=== PATIENT | female | born 1995 | race Two or more races ===

== ENCOUNTER 2017-09-21 21:59 | Emergency (ER) | payer MEDICAID ==
[~2017-09-21] VITALS: Ht 152.4 cm; Wt 88.5 kg
[2017-09-21 22:05] VITALS: BP 136/96
--- NOTE | 2017-09-21 22:16 | Emergency Room Report ---
History of Present Illness General Chief Complaint: Abdominal Pain Source: Patient Present Illness HPI 22-year-old female presenting with dysuria and suprapubic pain for 3 days. Denies any fever chills. No nausea vomiting diarrhea. Complains of dysuria and urinary urgency. No hematuria. Denies any abnormal vaginal discharge Allergies: Coded Allergies: No Known Allergies (Unverified , 09/21/17) Patient History Past Medical History: see triage record Past Surgical History: none Pertinent Family History: none Last Menstrual Period: sep 04 : 1 Para: 1 Reviewed Nursing Documentation: PMH: Agreed, PSxH: Agreed Nursing Documentation-PMH Past Medical History: No Stated History Review of Systems All Other Systems: negative except mentioned in HPI Physical Exam Vital Signs Date Time Temp Pulse Resp B/P (MAP) Pulse Ox O2 Delivery O2 Flow Rate FiO2 09/21/17 22:02 98.1 98 16 136/96 99 Room Air Sp02 EP Interpretation: reviewed, normal General Appearance: normal inspection, well appearing, no apparent distress, alert, GCS 15, non-toxic Head: normocephalic, atraumatic Eyes: bilateral eye normal inspection, bilateral eye PERRL, bilateral eye EOMI ENT: normal ENT inspection, normal pharynx, normal voice, moist mucus membranes Neck: normal inspection, full range of motion, supple Respiratory: normal inspection, lungs clear, normal breath sounds, no respiratory distress, no retraction, no wheezing, speaking full sentences, chest symmetrical Cardiovascular #1: normal inspection, regular rate, rhythm, no edema, normal capillary refill Cardiovascular #2: 2+ radial (R), 2+ radial (L) Gastrointestinal: soft, non-distended, no guarding, other - Suprapubic tenderness, no guarding no rigidity, no right lower quadrant or left lower quadrant focal tenderness Genitourinary: other - +cervix erythema, +cmt, no adnexal tendenress, white DC from cervix Musculoskeletal: normal inspection, back normal, normal range of motion, non- tender Neurologic: normal inspection, alert, oriented x3, responsive, motor strength/ tone normal, sensory intact, normal gait, speech normal Psychiatric: normal inspection, judgement/insight normal, memory normal Skin: normal inspection, normal color, no rash, warm/dry, well hydrated, normal turgor Medical Decision Making Diagnostic Impression: Primary Impression: Concern about STD in female without diagnosis ER Course 22-year-old female yo F with dysuria DDX: UTI / cystitis vs. pyelo vs STD Plan: UA, UCX ER course: Pt remains stable/nontoxic appearing in ED. UA neg pt states she is monogamous w one partner, doesnt use condoms, but has gotten chlamydia before exam significant for CMT and erythema Tx empirically for STD Disposition: Patient will be discharged home . Strict return precautions to discussed with patient such as high fever, chills, abdominal pain, nausea or vomiting. Patient verbalized understanding. Patient instructed to follow up with primary care doctor within 3 days. Patient agrees with plan. Please note that this Emergency Department Report was dictated using [employer] machine operator technology software, occasionally this can lead to erroneous entry secondary to interpretation by the dictation equipment Laboratory Tests Test 09/21/17 22:05 Urine Color Pale yellow Urine Appearance Clear Urine pH 7 (4.5-8.0) Urine Specific [place] 1.005 (1.005-1.035) Urine Protein Negative (NEGATIVE) Urine Glucose (UA) Negative (NEGATIVE) Urine Ketones Negative (NEGATIVE) Urine Occult Blood Negative (NEGATIVE) Urine Nitrite Negative (NEGATIVE) Urine Bilirubin Negative (NEGATIVE) Urine Urobilinogen Normal MG/DL (0.0-1.0) Urine Leukocyte Esterase 1+ (NEGATIVE) H Urine RBC 0-2 /HPF (0 - 2) Urine WBC 0-2 /HPF (0 - 2) Urine Squamous Epithelial Cells Few /LPF (NONE/OCC) Urine Bacteria Few /HPF (NONE) Urine HCG, Qualitative Negative Last Vital Signs Date Time Temp Pulse Resp B/P (MAP) Pulse Ox O2 Delivery O2 Flow Rate FiO2 09/21/17 22:02 98.1 98 16 136/96 99 Room Air Disposition: HOME, SELF-CARE Condition: Stable Diego Acosta M.D. Sep 21, 2017 22:16
[2017-09-21 22:27] LABS: APPEARANCE,URINE CLEAR; BILIRUBIN, URINE NEGATIVE (NEGATIVE); COLOR,URINE PALE YELLOW; GLUCOSE, URINE (UA) NEGATIVE (NEGATIVE); KETONES,URINE NEGATIVE (NEGATIVE); LEUKOCYTE ESTERASE ,URINE 1+ (NEGATIVE); NITRITE,URINE NEGATIVE (NEGATIVE); PH,URINE 7 (4.5-8.0); PROTEIN,URINE NEGATIVE (NEGATIVE); UROBILINOGEN,URINE NORMAL MG/DL (0.0-1.0)
[2017-09-21] MEDS ORDERED: Azithromycin 250mg tab ORAL ONE (23:15)
[2017-09-21 23:40] VITALS: BP 146/85
== END 2017-09-21 23:40 | disposition home or self-care (01) ==
LOC: EMR 23:40
DX: R30.0 Dysuria (principal); R10.30 Lower abdominal pain, unspecified
CPT/HCPCS: 81001; 81025; 96372; 99283; J0696; Q0144

== ENCOUNTER 2020-07-05 11:24 | Emergency (ER) | payer MEDICAID ==
[~2020-07-05] VITALS: Ht 157.5 cm; Wt 81.2 kg
--- NOTE | 2020-07-05 11:36 | NUR ---
ED Nurse Note: Pt ambulated to ed c/o epigastric and mid sternal chest pain x 3 days. pt reports being test for COVID on 07/03/2020 and she test (-). pt denies fever, cough, flu-like symptoms.
[2020-07-05 11:39] VITALS: BP 124/72
--- NOTE | 2020-07-05 11:40 | Emergency Room Report ---
History of Present Illness General Chief Complaint: Dyspnea/Respdistress Source: Patient Present Illness HPI Patient is a 25-year-old female past medical history of obesity who presents to the ER complaining of mid lower chest pain and epigastric pain for the past 4 days. She complains of associated shortness of breath. She denies any recent travel. She denies being on any control or hormones. She denies any smoking or drug use. She denies any family history of early cardiovascular disease. She denies any nausea or vomiting. She denies any lower extremity pain or edema. She states that she had a negative COVID-19 PCR test 2 days ago. Allergies: Coded Allergies: No Known Allergies (Unverified , 09/21/17) COVID-19 Screening Contact w/high risk pt: No Experienced COVID-19 symptoms?: No COVID-19 Testing performed [employer]: Yes - 07/03/20 COVID-19 Screening: Negative COVID-19 COVID-19 Testing Source: nasal Patient History Now: No Reviewed Nursing Documentation: PMH: Agreed; PSxH: Agreed Nursing Documentation-PMH Past Medical History: No Stated History Review of Systems All Other Systems: negative except mentioned in HPI Physical Exam Vital Signs Date Time Temp Pulse Resp B/P (MAP) Pulse Ox O2 Delivery O2 Flow Rate FiO2 07/05/20 11:27 98.4 84 17 124/72 (89) 97 Room Air Sp02 EP Interpretation: reviewed, normal General Appearance: no apparent distress, alert, GCS 15, non-toxic Head: normocephalic, atraumatic Eyes: bilateral eye normal inspection, bilateral eye PERRL ENT: hearing grossly normal, normal pharynx, no angioedema, normal voice Neck: full range of motion, supple/symm/no masses Respiratory: chest non-tender, lungs clear, normal breath sounds, speaking full sentences Cardiovascular #1: regular rate, rhythm, no edema Gastrointestinal: no guarding, no rebound, other - Mild epigastric tenderness to palpation Rectal: deferred Genitourinary: no CVA tenderness Musculoskeletal: normal range of motion, no calf tenderness, no lower extremity edema Neurologic: car tracer III-XII nml as tested, oriented x3 Skin: no rash Lymphatic: no adenopathy Medical Decision Making Diagnostic Impression: Primary Impression: Chest wall pain Additional Impression: Epigastric pain ER Course I suspect the chest pain the patient is presenting with is atypical in nature. Aortic dissection was considered but in the physical exam the patient has equal pulses in all extremities, no new focal neurological deficits, no apparent diastolic murmur on the cardiac exam, and no widening of the mediastinum on CXR. Pulmonary embolism was also considered however I believe patient to be low risk given normal d-dimer, normal heart rate, no evidence of hypoxemia, no significant unilateral leg swelling, no recent travel, no OCP or HRT use, no history of cancer, no right axis deviation on EKG, and no recent surgery. I also doubt that this is acute coronary syndrome since EKG shows no STEMI, troponin is normal with 4 days of pain, and the patients chest pain has resolved. The patient was counseled that, though unlikely, the possibility of an emergent cause of chest pain may still be present and that the patient should return immediately if symptoms persists or worsen. I believe the patient is stable for discharge to follow-up with their PMD. Laboratory Tests Test 07/05/20 11:40 White Blood Count 13.5 K/UL (4.8-10.8) H Red Blood Count 4.89 M/UL (4.20-5.40) Hemoglobin 14.1 G/DL (12.0-16.0) Hematocrit 43.2 % (37.0-47.0) Mean Corpuscular Volume 88 FL (80-99) Mean Corpuscular Hemoglobin 28.8 PG (27.0-31.0) Mean Corpuscular Hemoglobin Concent 32.6 G/DL (32.0-36.0) Red Cell Distribution Width 11.6 % (11.6-14.8) Platelet Count 371 K/UL (150-450) Mean Platelet Volume 7.2 FL (6.5-10.1) Neutrophils (%) (Auto) 63.8 % (45.0-75.0) Lymphocytes (%) (Auto) 29.6 % (20.0-45.0) Monocytes (%) (Auto) 4.4 % (1.0-10.0) Eosinophils (%) (Auto) 1.5 % (0.0-3.0) Basophils (%) (Auto) 0.8 % (0.0-2.0) D-Dimer 0.38 mg/L FEU (0.00-0.49) Urine Color Pale yellow Urine Appearance Clear Urine pH 8 (4.5-8.0) Urine Specific [place] 1.015 (1.005-1.035) Urine Protein Negative (NEGATIVE) Urine Glucose (UA) Negative (NEGATIVE) Urine Ketones Negative (NEGATIVE) Urine Blood Negative (NEGATIVE) Urine Nitrite Negative (NEGATIVE) Urine Bilirubin Negative (NEGATIVE) Urine Urobilinogen Normal MG/DL (0.0-1.0) Urine Leukocyte Esterase Negative (NEGATIVE) Urine HCG, Qualitative Negative (NEGATIVE) Sodium Level 141 MMOL/L (136-145) Potassium Level 3.6 MMOL/L (3.5-5.1) Chloride Level 102 MMOL/L (98-107) Carbon Dioxide Level 25 MMOL/L (21-32) Anion Gap 14 mmol/L (5-15) Blood Urea Nitrogen 13 mg/dL (7-18) Creatinine 0.7 MG/DL (0.55-1.30) Estimated Glomerular Filtration Rate > 60 mL/min (>60) Glucose Level 124 MG/DL (74-106) H Calcium Level 8.9 MG/DL (8.5-10.1) Magnesium Level 2.0 MG/DL (1.8-2.4) Total Bilirubin 0.1 MG/DL (0.2-1.0) L Aspartate Amino Transferase (AST) 21 U/L (15-37) Alanine Aminotransferase (ALT) 32 U/L (12-78) Alkaline Phosphatase 118 U/L (46-116) H Troponin I 0.000 ng/mL (0.000-0.056) Total Protein 8.2 G/DL (6.4-8.2) Albumin 3.9 G/DL (3.4-5.0) Globulin 4.3 g/dL Albumin/Globulin Ratio 0.9 (1.0-2.7) L Lipase 199 U/L (73-393) EKG Diagnostic Results EKG Time: 11:36 EP Interpretation: Maria R Thompson MD Rate: normal Rhythm: NSR ST Segments: no acute changes ASA given to the pt in ED: No Chest X-Ray Diagnostic Results Chest X-Ray Diagnostic Results : Chest X-Ray Ordered: Yes # of Views/Limited/Complete: 1 View Indication: Chest Pain EP Interpretation: Yes Interpretation: no consolidation, no effusion, no pneumothorax, no acute cardiopulmonary disease Impression: No acute disease Electronically Signed by: Maria R Thompson MD Last Vital Signs Date Time Temp Pulse Resp B/P (MAP) Pulse Ox O2 Delivery O2 Flow Rate FiO2 07/05/20 11:27 98.4 84 17 124/72 (89) 97 Room Air Disposition: HOME, SELF-CARE Condition: Stable Scripts Famotidine* (Pepcid 20mg tablet*) 20 Mg Tablet 20 MG ORAL DAILY, #30 TAB 0 Refills Prov: Maria R Thompson M.D. 07/05/20 Additional Instructions: The patient was provided with discharge instructions, notified to follow-up with a primary care doctor and or specialist in the next 24-48 hours, and to return to the ED if they have worsening of their symptoms. Please note that this report is being documented using [employer] technology. This can lead to erroneous entry secondary to incorrect interpretation by the dictating instrument. Maria R Thompson M.D. Jul 05, 2020 11:40
--- NOTE | 2020-07-05 11:40 | NUR ---
ED Nurse Note: Pt blood and urine specimen collected sent tolab. IV line established; patent and intact
[2020-07-05] MEDS ORDERED: Ketorolac 30mg Inj IV ONE (11:45)
--- NOTE | 2020-07-05 12:22 | NUR ---
ED Nurse Note: Xray at bedside
[2020-07-05 12:29] LABS: APPEARANCE,URINE CLEAR; BILIRUBIN, URINE NEGATIVE (NEGATIVE); COLOR,URINE PALE YELLOW; GLUCOSE, URINE (UA) NEGATIVE (NEGATIVE); KETONES,URINE NEGATIVE (NEGATIVE); LEUKOCYTE ESTERASE ,URINE NEGATIVE (NEGATIVE); NITRITE,URINE NEGATIVE (NEGATIVE); PH,URINE 8 (4.5-8.0); PROTEIN,URINE NEGATIVE (NEGATIVE); UROBILINOGEN,URINE NORMAL MG/DL (0.0-1.0)
[2020-07-05 12:35] LABS: BASOPHILS % (AUTO) 0.8 % (0.0-2.0); EOSINOPHILS % (AUTO) 1.5 % (0.0-3.0); HEMATOCRIT 43.2 % (37.0-47.0); HEMOGLOBIN 14.1 G/DL (12.0-16.0); LYMPHOCYTES % (AUTO) 29.6 % (20.0-45.0); MEAN CORPUSCULAR VOLUME 88 FL (80-99); MONOCYTES % (AUTO) 4.4 % (1.0-10.0); NEUTROPHILS % (AUTO) 63.8 % (45.0-75.0); PLATELET COUNT 371 K/UL (150-450); RED BLOOD COUNT 4.89 M/UL (4.20-5.40); RED CELL DISTRIBUTION WIDTH 11.6 % (11.6-14.8); WHITE BLOOD COUNT 13.5 K/UL (4.8-10.8)
[2020-07-05 12:55] LABS: ANION GAP 14 mmol/L (5-15); BLOOD UREA NITROGEN 13 mg/dL (7-18); CALCIUM 8.9 MG/DL (8.5-10.1); CARBON DIOXIDE 25 MMOL/L (21-32); CHLORIDE 102 MMOL/L (98-107); CREATININE 0.7 MG/DL (0.55-1.30); POTASSIUM 3.6 MMOL/L (3.5-5.1); SODIUM 141 MMOL/L (136-145)
[2020-07-05 12:59] LABS: ALANINE AMINOTRANSFERASE 32 U/L (12-78); ALBUMIN 3.9 G/DL (3.4-5.0); ALBUMIN/GLOBULIN RATIO 0.9 (1.0-2.7); ALKALINE PHOSPHATASE 118 U/L (46-116); ASPARTATE AMINO TRANSFERASE 21 U/L (15-37); BILIRUBIN,TOTAL 0.1 MG/DL (0.2-1.0)
[2020-07-05] MEDS ORDERED: FAMOTIDINE20 MG ORAL (13:03)
[2020-07-05 13:25] VITALS: BP 133/69
--- NOTE | 2020-07-05 13:31 | NUR ---
ER DISCHARGE NOTE: Patient is cleared to be discharged per ERMD, pt is aox4, on room air, with stable vital signs. pt was given dc and prescription instructions, pt was able to verbalize understanding, pt id band and iv site removed without complications. pt is able to ambulate with steady gait. pt took all belongings.
--- NOTE | 2020-07-05 16:10 | Diagnostic Imaging Report ---
Indication: Chest pain Technique: One view of the chest Comparison: none Findings: Lungs and pleural spaces are clear. Heart size is normal. Impression: No acute process
== END 2020-07-05 13:25 | disposition home or self-care (01) ==
LOC: EMR 11:45
DX: R07.9 Chest pain, unspecified (principal); R10.13 Epigastric pain; R06.02 Shortness of breath
CPT/HCPCS: 36415; 71045; 80053; 81003; 81025; 83690; 83735; 84484; 85025; 85379; 93005; 96361; 96374; 96375; J1885; J7030; S0028; Z7502; 99284